=== PATIENT | male | born 1930 ===

== ENCOUNTER 2019-08-02 09:31 | Day surgery (SDC) | payer MEDICARE, BC ==
--- NOTE | 2019-08-01 21:55 | Pre-Procedure Note/Attestation ---
Pre-Procedure Note/Attestation Complete Prior to Procedure Planned Procedure: left - Removal of Cataract and placement of intraocular lens , left eye Procedure Narrative: Removal of cataract and placement of intraocular lens, left eye Indications for Procedure Pre-Operative Diagnosis: Cataract, senile, left eye Attestation I attest that I discussed the nature of the procedure; its benefits; risks and complications; and alternatives (and the risks and benefits of such alternatives ), prior to the procedure, with the patient (or the patient's legal bottling equipment sales representative). I attest that, if there was a reasonable possibility of needing a blood transfusion, the patient (or the patient's legal bottling equipment sales representative) was given the [place] Department [employer] [facility] standardized written summary, pursuant to the Mina [place] Blood Safety Act ([place] Health and Safety Code # 1645, as amended). I attest that I re-evaluated the patient just prior to the surgery and that there has been no change in the patient's H&P, except as documented below: Subhash Rizo MD Aug 01, 2019 21:55
[2019-08-02] VITALS (8 sets, daily range): BP systolic 112–146; BP diastolic 64–83
[~2019-08-02] VITALS: Ht 177.8 cm; Wt 79.4 kg
[2019-08-02] MEDS ORDERED: EPINEPHrine 1mg/1ml Amp ONE (09:53)
[2019-08-02] MEDS ORDERED: Lidocaine 4% Amp ONE (09:53)
[2019-08-02] MEDS ORDERED: Pred Forte 1% Opth Susp 1ml ONE (09:54)
[2019-08-02] MEDS ORDERED: Polysporin Opth Oint 3.5gm ONE (09:54)
[2019-08-02] MEDS ORDERED: Carbachol 0.01% Op Soln 1.5ml vial ONE (09:54)
[2019-08-02] MEDS ORDERED: Lidocaine 1% MPF 10mg/ml 5ml ONE ×2 (09:54→10:52)
[2019-08-02] MEDS ORDERED: Fluorescein Strips ONE (09:54)
[2019-08-02] MEDS ORDERED: Dexamethasone 4mg/ml vial ONE (09:54)
[2019-08-02] MEDS ORDERED: BSS 15ml BTL ONE (09:55)
[2019-08-02] MEDS ORDERED: BSS 500ml btl ONE (09:55)
[2019-08-02] MEDS ORDERED: Povidone-Iodine 5% opth solution ONE (09:55)
[2019-08-02] MEDS ORDERED: Acetylcholine Injection (OR) ONE (09:56)
[2019-08-02] MEDS ORDERED: Sodium Hyaluronate 10 mg/ml 0.85ml ONE (09:56)
[2019-08-02] MEDS ORDERED: Bupivacaine 0.75% 30ml vial INJ ONE (09:56)
[2019-08-02] MEDS ORDERED: Ciprofloxacin Opth Soln 2.5ml ONE (10:12)
[2019-08-02] MEDS ORDERED: Akten 3.5% 1ml Btl ONE (10:12)
[2019-08-02] MEDS ORDERED: Phenylephrine 10% Opth Soln 5ml ONE (10:13)
[2019-08-02] MEDS ORDERED: Tropicamide 1% Opth 15ml Soln ONE (10:13)
[2019-08-02] MEDS ORDERED: Tobradex Opth Susp 2.5ml ONE (10:13)
[2019-08-02] MEDS ORDERED: Cyclopentolate 1% Opth Sol 2ml ONE (10:13)
[2019-08-02] MEDS: Ciprofloxacin Opth Soln 2.5ml LEFT EYE SCH ×3 (10:29→10:53)
[2019-08-02] MEDS: Cyclopentolate 1% Opth Sol 2ml LEFT EYE SCH ×3 (10:30→10:52)
[2019-08-02] MEDS: Tropicamide 1% Opth 15ml Soln LEFT EYE SCH ×3 (10:31→10:52)
[2019-08-02] MEDS: Phenylephrine 10% Opth Soln 5ml LEFT EYE SCH ×3 (10:31→10:53)
[2019-08-02] MEDS: Tobradex Opth Susp 2.5ml LEFT EYE SCH ×3 (10:31→10:53)
[2019-08-02] MEDS: Akten 3.5% 1ml Btl LEFT EYE SCH ×3 (10:32→10:53)
--- NOTE | 2019-08-02 10:50 | Anethesia Preoperative Eval ---
Anesthesia Pre-op PMH/ROS General Date of Evaluation: Aug 02, 2019 Anesthesiologist: Cm ASA Score: ASA 3 Mallampati Score Class I : Soft palate, uvula, fauces, pillars visible Class II: Soft palate, uvula, fauces visible Class III: Soft palate, base of uvula visible Class IV: Only hard plate visible Mallampati Classification: Class III Surgeon: Sallie Diagnosis: left cataract Surgical Procedure: left cataract extraction with iol Anesthesia History: none Family History: no anesthesia problems Allergies: Coded Allergies: No Known Allergies (Unverified , 08/01/19) Medications: see eMAR Patient NPO?: Yes NPO Date: Aug 01, 2019 NPO Time: 22:00 Past Medical History Cardiovascular: Reports: HTN, CAD - s/p CABG, other - AAA s/p repair, HLD, PVD ; Denies: NH, valve dz, arrhythmia Pulmonary: Denies: asthma, COPD, KWAKU, other Gastrointestinal/Genitourinary: Reports: GERD; Denies: CRI, ESRD, other Neurologic/Psychiatric: Denies: dementia, CVA, depression/anxiety, TIA, other Endocrine: Reports: other - hyperparathyroidism; Denies: DM, hypothyroidism, steroids HEENT: Reports: cataract (L), cataract (R); Denies: glaucoma, [place] (L), [place] (R), other Hematology/Immune: Denies: anemia, DVT, bleeding disorder, other Musculoskeletal/Integumentary: Reports: OA; Denies: RA, DJD, DDD, edema, other PSxH Narrative: AAA repair, CABG, LIHR, left IIA embolization and stent placement, T&A Anesthesia Pre-op Phys. Exam Physician Exam see chart Constitutional: NAD Cardiovascular: RRR Respiratory: CTA Airway Exam Mallampati Score: Class III MO: limited ROM: limited Anesthesia Pre-op A/P Labs see chart Studies Pre-op Studies: EKG - sr Risk Assessment & Plan Assessment: ASA III Plan: MAC Status Change Before Surgery: No Pre-Antibiotics Drug: N/A Suzanne Nice MD Aug 02, 2019 10:50
[2019-08-02] MEDS ORDERED: Midazolam 2mg/2ml Inj ONE (10:52)
[2019-08-02] MEDS ORDERED: Propofol 200mg/20ml IV ONE (10:52)
[2019-08-02] MEDS ORDERED: fentaNYL 100 mcg/2 mL IV ONE (10:52)
[2019-08-02] MEDS ORDERED: AMLODIPINE BESYL5 MG ORAL (11:19)
[2019-08-02] MEDS ORDERED: BENAZEPRIL HCL40 MG ORAL (11:20)
[2019-08-02] MEDS ORDERED: ATENOLOL50 MG ORAL (11:20)
[2019-08-02] MEDS ORDERED: FUROSEMIDE40 MG ORAL (11:21)
[2019-08-02] MEDS ORDERED: LR 1000ml 1,000 ML IVLG SCH (11:39)
[2019-08-02] MEDS ORDERED: DiphenhydrAMINE 50mg/ml Inj IVP PRN (11:45)
[2019-08-02] MEDS ORDERED: DiphenhydrAMINE 50mg/ml Inj ONE (11:57)
--- NOTE | 2019-08-02 13:06 | Immediate Post-Op Evaluation ---
Immediate Post-Op Evalulation Immediate Post-Op Evalulation Procedure: left cataract extraction with iol Date of Evaluation: Aug 02, 2019 Time of Evaluation: 13:08 IV Fluids: 300 Blood Products: 0 Estimated Blood Loss: 0 Urinary Output: 0 Blood Pressure Systolic: 146 Blood Pressure Diastolic: 83 Pulse Rate: 72 Respiratory Rate: 16 O2 Sat by Pulse Oximetry: 96 Temperature (Fahrenheit): 97 Pain Score (1-10): 0 Nausea: No Vomiting: No Complications 0 Patient Status: awake, reacts, patent, none Hydration Status: adequate Drug: N/A Suzanne Nice MD Aug 02, 2019 13:06
--- NOTE | 2019-08-02 13:06 | 48 Hour Post Anesthesia Eval ---
Post Anesthesia Evaluation Procedure: left cataract extraction with iol Date of Evaluation: Aug 02, 2019 Airway: patent Nausea: No Vomiting: No Pain Intensity: 0 Hydration Status: adequate Cardiopulmonary Status: at baseline Mental Status/LOC: patient returned to baseline Post-Anesthesia Complications: 0 Follow-up care needed: ready to discharge Suzanne Nice MD Aug 02, 2019 13:06
--- NOTE | 2019-08-02 13:16 | Brief Operative Note ---
Immediate Post Operative Note Operative Note Pre-op Diagnosis: Cataract, senile, left eye Procedure: Phaco PC IOL OS Post-op Diagnosis: Cataract, combined OS Post-op Diagnosis: same as pre-op plus Surgeon: Manav Rizo MD MS [employer] Driver: none Anesthesia: local, MAC Specimen: none Complications: none Fluids: see chart Estimated Blood Loss: minimal Implant(s) used?: Yes - tecnis [id number] 19.0 Subhash Rizo MD Aug 02, 2019 13:16
--- NOTE | 2019-08-02 13:17 | Discharge Instructions ---
Discharge Instructions Discharge Instructions Follow Up Orders Wear shield at all times except to place eye drops F/U tomorrow in Dr Rizo's office For Congestive Heart Failure Reminder Report to your physician any weight gain of 5 pounds or more in one week. Subhash Rizo MD Aug 02, 2019 13:17
--- NOTE | 2019-08-04 11:54 | Operative Note - Dictated ---
DATE OF OPERATION: 08/02/2019 SURGEON: Subhash Rizo M.D. ACADEMIC AFFAIRS COORDINATOR SURGEON: None. ANESTHESIOLOGIST: Dr. Cox. ANESTHESIA: Local/standby/monitored anesthesia care. PREOPERATIVE DIAGNOSIS: Combined cataract, left eye. POSTOPERATIVE DIAGNOSIS: Combined cataract, left eye. PROCEDURE: 1. Phacoemulsification of cataract, left eye. 2. Placement of posterior chamber intraocular lens, left eye (Model Tecnis ZCB00 power 19.0). SPECIMENS: None. COMPLICATIONS: None. INDICATIONS FOR SURGERY: The patient has had painless progressive decrease in visual acuity in the left eye secondary to cataract. The patient understands the risks of surgery including infection, bleeding, need for further surgery, loss of vision, no improvement in vision, loss of the eye, loss of life, glaucoma, retinal detachment, and understands these risks and elects to proceed with surgery. FINDINGS: The patient has had the painless progressive findings. The patient has a +3 nuclear sclerotic cataract as well as a +1 cortical cataract. OPERATIVE NOTE: After informed consent was obtained, the patient was brought into the operating room, placed in supine position. Cardiac and respiratory monitors were attached. A time-out was made and all criteria were met and everyone in the room agreed. The left eye was then draped and prepped in sterile manner for ocular surgery. A lid speculum was placed in the eye. A 1% lidocaine preservative-free was injected at the approximate 2:30 limbus. A conjunctival peritomy from approximately 2 o'clock to 3 o'clock was made and dissected posteriorly. Hemostasis was maintained with bipolar cautery. A 2.8 mm limbal incision was made centered approximately 2:30 and dissected anteriorly. A paracentesis was made at approximately 5:30 and Shugarcaine was injected into the anterior chamber followed by Healon. The anterior chamber was then entered using a 2.8 mm keratome through the limbal incision. An anterior capsulorrhexis was then performed. Hydrodissection and hydrodelineation of the lens was then performed. The lens was then phacoemulsified using divide and conquer four-quadrant technique. Residual cortical material was then aspirated. Healon was injected into the anterior chamber and capsular bag. The lens was taken from its package, placed into the cartridge and the tip of the cartridge was placed through the limbal incision. The lens was injected into the capsular bag and centered nicely with a Sins[place] hook. Healon was then aspirated from the anterior chamber and capsular bag. One 10-0 nylon interrupted suture was then placed through the limbal incision and the knot was rotated and buried. Care was taken during the entire procedure not to touch the endothelium. The wounds were checked and found to be watertight. The conjunctiva was closed with forceps cautery. The lid speculum and drapes were removed from the eye and drops of Pred Forte, TobraDex, and ciprofloxacin were applied to the eye followed by Maxitrol ointment. The shield was then applied to the eye. The patient left the operating room awake, alert, and in stable condition. Subhash Rizo M.D. DR: MARYANNE JOB#: [id number] CC:
== END 2019-08-02 14:15 | disposition home or self-care (01) ==
LOC: SUR 09:31
DX: H25.12 Age-related nuclear cataract, left eye (principal); H25.012 Cortical age-related cataract, left eye; I11.9 Hypertensive heart disease without heart failure; Z95.1 Presence of aortocoronary bypass graft; K21.9 Gastro-esophageal reflux disease without esophagitis; M19.90 Unspecified osteoarthritis, unspecified site
CPT/HCPCS: 66984; J0171; J1100; J1200; J2250; J2704; J3010; V2632; 94003; 94150